=== PATIENT | male | born 1970 | race Two or more races ===

== ENCOUNTER 2024-10-01 18:24 | Inpatient (IN) | payer OTHER ==
[~2024-10-01] VITALS: Ht 167.6 cm; Wt 90.3 kg
[2024-10-01] MEDS ORDERED: ATOR20TA65 PO (18:52)
[2024-10-01] MEDS ORDERED: GLYB2.5T5 PO (18:52)
[2024-10-01] MEDS ORDERED: PIOG45TA64 PO (18:52)
[2024-10-01] MEDS ORDERED: METF-446 PO (18:52)
[2024-10-01] MEDS ORDERED: EMPA25TA3 PO (18:52)
[2024-10-01] MEDS ORDERED: LISI10TA24 PO (18:52)
[2024-10-01] MEDS ORDERED: LINA5TAB PO (18:52)
[2024-10-01 18:53] LABS: EOSINOPHILS % (AUTO) 0.1 % (1.0-6.0); HEMATOCRIT 44.5 % (41-53); HEMOGLOBIN 14.8 g/dL (13.5-17.5); LYMPHOCYTES # (AUTO) 1.9 K/uL (1.0-4.8); LYMPHOCYTES % (AUTO) 30.5 % (22.0-44.0); MEAN CORPUSCULAR HGB CONC 33.3 G/dL (31.0-37.0); MEAN CORPUSCULAR VOLUME 90 fL (80-100); MONOCYTES # (AUTO) 0.5 K/uL (0.1-1.0); MONOCYTES % (AUTO) 8.2 % (2.0-9.0); NEUTROPHILS # (AUTO) 3.8 K/uL (1.8-7.7); NEUTROPHILS % (AUTO) 60.2 % (40.0-70.0); PLATELET COUNT (AUTO) 258 K/uL (150-450); RED BLOOD CELL COUNT(AUTO) 4.94 MIL/uL (4.50-5.90); WHITE BLOOD COUNT (AUTO) 6.4 K/uL (4.5-11.0)
[2024-10-01 19:03] LABS: ANION GAP 9 mmol/L (8-16); CARBON DIOXIDE 27 mmol/L (22-29); CHLORIDE 94 mmol/L (98-107); CREATININE 0.75 mg/dL (0.60-1.30); GLOMERULAR FILTR. RATE CALC > 60 mL/min (>60); GLUCOSE,RANDOM 110 mg/dL (70-110); POTASSIUM 4.1 mmol/L (3.5-5.1); SODIUM SERUM 130 mmol/L (136-145); UREA NITROGEN, BLOOD 14 mg/dL (7-18)
[2024-10-01 19:07] LABS: ALANINE AMINOTRANSFERASE 43 U/L (12-78); ALBUMIN 3.9 g/dL (3.4-5.0); ALKALINE PHOSPHATASE 103 U/L (46-116); ASPARTATE AMINOTRANSFERASE 44 U/L (15-37); BILIRUBIN,TOTAL 0.7 mg/dL (0.1-1.0); CREATINE KINASE, TOTAL ONLY 426 U/L (39-308); TOTAL PROTEIN, SERUM 7.9 g/dL (6.4-8.2)
[2024-10-01 19:11] LABS: B-TYPE NATRIURETIC PEPTIDE < 5 pg/mL (0-100)
[2024-10-01 19:14] LABS: TROPONIN I-HIGH SENSITIVITY 4 ng/L (<76)
[2024-10-01] MEDS ORDERED: ONDANSETRON HCL 4 MG/2 ML VIAL IVP PRN (19:30)
[2024-10-01] MEDS ORDERED: DEXTROSE 50%-WATER 25 GM/50 ML SYRINGE IVP PRN (19:30)
[2024-10-01] MEDS: SODIUM CHLORIDE 0.9% 1,000 ML IV ONE (19:34)
[2024-10-01] MEDS: DOCUSATE SODIUM 100 MG CAPSULE PO SCH (20:03)
[2024-10-01] MEDS: ATORVASTATIN CALCIUM 40 MG TABLET PO SCH (20:10)
[2024-10-01] MEDS: ASPIRIN 81 MG CHEWABLE TABLET PO ONE (20:10)
[2024-10-01 21:00] LABS: ALCOHOL, URINE DRUG SCREEN POSITIVE (NEGATIVE); AMPHET/METH SCREEN,URINE NEGATIVE (NEGATIVE); BARBITURATE SCREEN, URINE NEGATIVE (NEGATIVE); BENZODIAZEPINES SCREEN,URINE NEGATIVE (NEGATIVE); CANNABINOID SCREEN,URINE NEGATIVE (NEGATIVE); COCAINE SCREEN,URINE NEGATIVE (NEGATIVE); METHADONE SCREEN, URINE NEGATIVE (NEGATIVE); OPIATE SCREEN,URINE NEGATIVE (NEGATIVE); PHENCYCLIDINE SCREEN,URINE NEGATIVE (NEGATIVE)
[2024-10-01] MEDS ORDERED: POLYETHYLENE GLYCOL 3350 17 GM PACKET PO ONE (21:15)
[2024-10-01] MEDS ORDERED: SENNOSIDES 8.6 MG TABLET PO ONE (21:15)
[2024-10-01] MEDS ORDERED: DOCUSATE SODIUM 100 MG CAPSULE PO ONE (21:15)
[2024-10-01 21:25] VITALS: BP 129/68; PULSE 90; RESP 19; TEMP 98.4; O2SAT 98
[2024-10-01] MEDS: NITROGLYCERIN 0.4 MG SUBLINGUAL TABLET #25 SL PRN (21:53)
[2024-10-01 23:20] VITALS: BP 107/71; PULSE 99; RESP 18; TEMP 98.2; O2SAT 96
[2024-10-01] MEDS: HEPARIN SODIUM,PORCINE 5,000 UNITS/ML VIAL SQ SCH (23:34)
[2024-10-02 00:03] LABS: TROPONIN I-HIGH SENSITIVITY Less Than 4 ng/L (<76)
[2024-10-02 00:26] LABS: GLUCOMETER DEV NAME(LOC) 5S.2D; GLUCOSE,POINT OF CARE 129 MG/DL (70-110)
[2024-10-02] MEDS ORDERED: LORazepam 2 MG/ML VIAL IVP PRN (03:00)
[2024-10-02] MEDS: AZITHROMYCIN 500 MG/NS 250 ML IV SCH (05:52)
[2024-10-02 06:10] VITALS: BP 132/81; PULSE 85; RESP 18; TEMP 98.2; O2SAT 96
[2024-10-02] MEDS: CefTRIAXone 1 GM/DEXTROSE 50 ML IV SCH (06:39)
[2024-10-02] MEDS: INSULIN LISPRO 100 UNITS/ML SQ PRN (06:59)
[2024-10-02 07:01] LABS: BASOPHILS % (AUTO) 1.7 % (0.0-2.0); EOSINOPHILS % (AUTO) 0.3 % (1.0-6.0); HEMATOCRIT 44.6 % (41-53); HEMOGLOBIN 15.1 g/dL (13.5-17.5); LYMPHOCYTES % (AUTO) 23.6 % (22.0-44.0); MEAN CORPUSCULAR HEMOGLOBIN 30.5 pg (26.0-34.0); MEAN CORPUSCULAR HGB CONC 33.8 G/dL (31.0-37.0); MEAN CORPUSCULAR VOLUME 90 fL (80-100); MONOCYTES # (AUTO) 0.3 K/uL (0.1-1.0); MONOCYTES % (AUTO) 6.4 % (2.0-9.0); NEUTROPHILS # (AUTO) 2.9 K/uL (1.8-7.7); PLATELET COUNT (AUTO) 246 K/uL (150-450); RED BLOOD CELL COUNT(AUTO) 4.94 MIL/uL (4.50-5.90); RED CELL DISTRIBUTION WIDTH 14.8 % (11.5-14.5); WHITE BLOOD COUNT (AUTO) 4.3 K/uL (4.5-11.0)
[2024-10-02 07:11] LABS: GLUCOMETER DEV NAME(LOC) 5S.2D; GLUCOSE,POINT OF CARE 148 MG/DL (70-110)
[2024-10-02 07:11] LABS: ANION GAP 12 mmol/L (8-16); CALCIUM, TOTAL 8.9 mg/dL (8.8-10.5); CARBON DIOXIDE 26 mmol/L (22-29); CHLORIDE 99 mmol/L (98-107); CREATININE 0.69 mg/dL (0.60-1.30); GLOMERULAR FILTR. RATE CALC > 60 mL/min (>60); GLUCOSE,RANDOM 126 mg/dL (70-110); SODIUM SERUM 137 mmol/L (136-145); UREA NITROGEN, BLOOD 12 mg/dL (7-18)
[2024-10-02 07:15] VITALS: BP 133/84; PULSE 85; RESP 18; TEMP 98.1; O2SAT 97
[2024-10-02 07:16] LABS: COVID AG,FIA SOURCE NASAL SWAB
[2024-10-02 07:48] LABS: SARS-COV2 (COVID) ANTIGEN,FIA Negative (Negative)
[2024-10-02] MEDS: carvediloL 3.125 MG TABLET PO SCH (09:36)
[2024-10-02] MEDS: ASPIRIN 81 MG CHEWABLE TABLET PO SCH (09:36)
[2024-10-02] MEDS: ACETAMINOPHEN 325 MG TABLET PO PRN (10:40)
[2024-10-02 11:12] VITALS: BP 144/82; PULSE 82; RESP 18; TEMP 98; O2SAT 96
[2024-10-02 14:40] LABS: GLUCOMETER DEV NAME(LOC) 5S.2D; GLUCOSE,POINT OF CARE 132 MG/DL (70-110)
[2024-10-02] MEDS ORDERED: ASPI-1450 PO (15:06)
[2024-10-02] MEDS ORDERED: CARV3 PO (15:06)
== END 2024-10-02 16:12 | disposition home or self-care (01) | DRG 139 ==
LOC: EMS 18:24 → EDH 19:27 → 5S 21:10
PROVIDERS: ADMIT Internal Medicine; ATTEND Internal Medicine
DX: J18.9 Pneumonia, unspecified organism (principal); G92.8 Other toxic encephalopathy; E87.1 Hypo-osmolality and hyponatremia; R07.89 Other chest pain; F10.239 Alcohol dependence with withdrawal, unspecified; I10 Essential (primary) hypertension; F10.229 Alcohol dependence with intoxication, unspecified; E11.9 Type 2 diabetes mellitus without complications; E78.00 Pure hypercholesterolemia, unspecified; Z20.822 Contact with and (suspected) exposure to COVID-19
CPT/HCPCS: 71045; 80048; 80076; 80307; 82550; 82962; 83735; 83880; 84484; 85025; 93005; 99285; G0378; G0480; J0456; J0696; J1644; 36415-L1; 36415-TC